=== PATIENT | male | born 1975 | race Caucasian/White ===

== ENCOUNTER 2019-08-01 15:32 | Emergency (ER) | payer MEDICAID ==
[~2019-08-01] VITALS: Ht 177.8 cm; Wt 100.3 kg
[~2019-08-01 15:32] MED LIST: POLY10DR19 RIGHT EYE
[2019-08-01 15:52] VITALS: Ht 177.8 cm; Wt 100.3 kg
[2019-08-01] MEDS ORDERED: TETRACAINE 0.5% 4 ML OPH RIGHT EYE ONE (17:00)
[2019-08-01] MEDS ORDERED: FLUORESCEIN STRIP RIGHT EYE ONE (17:00)
[2019-08-01] MEDS ORDERED: OPHTHALMIC IRRIG SOLUTION 120 ML BOTH EYES ONE ×2 (18:00→18:30)
[2019-08-01 18:29] VITALS: BP 155/93; PULSE 73; RESP 20
== END 2019-08-01 18:20 | disposition home or self-care (01) ==
LOC: FTE 15:32
DX: S05.01XA Injury of conjunctiva and corneal abrasion without foreign body, right eye, initial encounter (principal); F17.210 Nicotine dependence, cigarettes, uncomplicated; X58.XXXA Exposure to other specified factors, initial encounter; Y92.89 Other specified places as the place of occurrence of the external cause
CPT/HCPCS: Z7502; Z7610; 99283